=== PATIENT | male | born 1955 | race Caucasian/White ===

== ENCOUNTER → 2019-01-18 | Outpatient (CLI) | payer MEDICARE, OTHER ==
--- NOTE | 2019-01-18 09:29 | US ---
EXAMINATION TYPE: US kidneys/renal and bladder DATE OF EXAM: 01/18/2019 COMPARISON: CT's CLINICAL HISTORY: R31.9 Hematuria, unspecified. EXAM MEASUREMENTS: Right Kidney: 13.8 x 4.6 x 6.4 cm Left Kidney: 14.0 x 6.2 x 6.7 cm Post Void Residual Volume: 70.15 mL Right Kidney: upper pole cyst measures 3.7 x 2.9 x 3.1 cm, other smaller cysts seen. Left Kidney: multiple cysts seen, largest measures 6.2 x 4.8 x 5.4 cm. mild hydro noted, even post vo id. Bladder: wnl Bilateral Jets seen: Yes Normal Post Void Residual: no, 70.15 ml. There is no evidence for hydronephrosis at this point in time. No nephrolithiasis is seen. No solid masses are identified. The urinary bladder is anechoic. Bilateral ureteral jets are seen. IMPRESSION: Simple renal cysts noted. No solid mass is identified.
== END | disposition home or self-care (01) ==
LOC: RADUSWWP 08:30
PROVIDERS: ATTEND Internal Medicine
DX: N28.1 Cyst of kidney, acquired (principal)
CPT/HCPCS: 76770

== ENCOUNTER → 2020-08-07 | Outpatient (CLI) | payer MEDICARE, OTHER ==
--- NOTE | 2020-08-08 09:40 | XR ---
EXAMINATION TYPE: XR chest 2V DATE OF EXAM: 08/07/2020 CLINICAL HISTORY: R05. Cough and congestion. Covid 19 exposure. TECHNIQUE: Frontal and lateral view of the chest. COMPARISON: None FINDINGS: The cardiomediastinal silhouette is within normal limits for size. Pulmonary vasculature i s normal. There is no focal air space opacity, pleural effusion, or pneumothorax seen. The osseous st ructures are intact. IMPRESSION: No focal airspace opacity.
== END | disposition home or self-care (01) ==
LOC: RAD 17:34
PROVIDERS: ATTEND Internal Medicine
DX: R05 Cough (principal)
CPT/HCPCS: 71046

== ENCOUNTER → 2020-08-21 | Outpatient (CLI) | payer MEDICARE, OTHER | END | disposition home or self-care (01) | LOC: LABWHC1 14:20 | PROVIDERS: ATTEND Internal Medicine | DX: Z20.828 Contact with and (suspected) exposure to other viral communicable diseases (principal) | CPT/HCPCS: U0003; C9803 ==

== ENCOUNTER → 2020-10-25 | Outpatient (CLI) | payer MEDICARE, OTHER ==
--- NOTE | 2020-10-25 08:32 | US ---
EXAMINATION TYPE: US liver DATE OF EXAM: 10/25/2020 COMPARISON: CT 09/05/2016 CLINICAL HISTORY: E80.7 Increased bilirubin. EXAM MEASUREMENTS: Liver Length: 19.5 cm Gallbladder Wall: 0.2 cm CBD: 0.5 cm Right Kidney: 13.6 x 5.2 x 6.2 cm Pancreas: Obscured by bowel gas Liver: Increased attenuation, decreased visualization of vessels suggestive of fatty infiltrate Gallbladder: wnl Evidence for sonographic Calvo's sign: No CBD: wnl as visualized, distal portion obscured by bowel gas Right Kidney: No hydronephrosis. Cyst upper pole measuring 3.8 x 3.6 x 3.6 cm Visualized liver remains heterogeneously hyperechoic. No intrahepatic or extra hepatic biliary dilata tion. Redemonstration of simple appearing thin-walled cyst posteriorly upper pole right kidney IMPRESSION: Marked fatty filtration of the liver remains present. Patient may benefit with ultrasound elastography to further evaluate.
== END | disposition home or self-care (01) ==
LOC: RADUSWWP 07:40
PROVIDERS: ATTEND Internal Medicine
DX: K76.0 Fatty (change of) liver, not elsewhere classified (principal)
CPT/HCPCS: 76705

== ENCOUNTER → 2023-01-09 | Outpatient (CLI) | payer BC, MEDICARE ==
[~2023-01-09] MED LIST: REGADENOSON 0.4 MG/5 ML SYRINGE IV PRN
--- NOTE | 2023-01-09 11:17 | NM ---
EXAMINATION TYPE: NM stress lexiscan cardiolite DATE OF EXAM: 01/09/2023 COMPARISON: NONE HISTORY: None TECHNIQUE: After the intravenous administration of 10.0 mCi Tc 99m Sestamibi - Cardiolite resting SP ECT images acquired 45 minutes post injection. The patient received 0.4mg Lexiscan, 25.4 mCi Tc 99m Sestamibi - Stress images obtained [address] injection FINDINGS: Review of stress and rest SPECT images demonstrates persistent defect involving the inferior lateral myocardium on stress and rest images just above remote infarction. Corresponding lack of wall motion given lack of radiotracer uptake.. Gated analysis shows an estimated left ventricular ejection fract ion of 46 %. IMPRESSION: 1. Predominantly fixed defect involving the inferolateral myocardium suggestive of previous infarct. Tiny area of stress-induced reversible ischemia not excluded. 2. Ejection fraction of 46%. A Yellow level critical message alert has been initiated for Eric Hoffman MD via the [email or web address] Critical Results System on 01/09/2023 11:15 AM. This message alert has been sent to Eric Hoffman MD vi a the preferences provided by the clinician for the receipt of Radiology Critical Findings. Message I [id number].
--- NOTE | 2023-01-09 13:27 | CA ---
Lexiscan Nuclear Stress Test Report Name: Stuart Zhang Exam Date: 01/09/2023 09:32 Exam Location: [facility] Stress Ht (in): 74 Wt (lb): 200 BSA: 2.17 Ordering Phys: Eric Hoffman MD Referring Phys: Dalton, Technologist: Jalen Tavares Age: 67 Gender: M : 1955 Procedure CPT: Indications: I25.10 R93.1 ICD-10 Codes: Patient History: Medications: CRESTOR, METFORMIN Meds past 24 hrs: Pretest Chest Pain: STRESS TEST Lexiscan Protocol Exercise Duration (min:sec): 01:[address] Depressions (mm): Angina Score: Downey Score: Resting HR (bpm): 72 Peak HR (bpm): 108 Resting BP (mmHg): 153 / 94 Peak BP (mmHg): 149 / 90 MPHR: 151 Target HR: 128 % MPHR: 72 METS: 1.0 Total Dose: Peak Dose: Atropine: Double Product: 95103 BP Response: Stress Termination: PROTOCOL COMPLETE Stress Symptoms: HEAD PRESSURE Stress Summary: ECG ANALYSIS Resting ECG: Stress ECG: CONCLUSIONS At baseline EKG showed normal sinus rhythm, normal axis, no significant ST or T wave abnormalities. Patient recieved IV infusion of Lexiscan 0.4mg and at peak infusion EKG showed no significant change from baseline. Conclusions: 1. Normal EKG response to Lexiscan infusion 2. Nuclear imaging to be reported separately. Dr. Vasyl Doan DO (Electronically Signed) Final Date: 09 January 2023 13:26
== END | disposition home or self-care (01) ==
LOC: RADNMMAIN 07:37
PROVIDERS: ATTEND Internal Medicine
DX: I25.10 Atherosclerotic heart disease of native coronary artery without angina pectoris (principal); R93.1 Abnormal findings on diagnostic imaging of heart and coronary circulation
CPT/HCPCS: 93017; 78452; A9500; J2785